=== PATIENT | female | born 2000 | race Caucasian/White ===

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

== ENCOUNTER 2021-04-28 02:24 | Outpatient (CLI) | payer BC, SELFPAY ==
[2021-04-28 10:08] LABS: Abs Immature Grans 0.01 10^3/uL (0.0-0.06); Absolute Basophil Count 0.02 10^3/uL (0.0-0.2); Absolute Eosinophil Count 0.11 10^3/uL (0.0-0.7); Absolute Lymphocyte Count 1.53 10^3/uL (1.2-3.4); Absolute Monocyte Count 0.56 10^3/uL (0.1-0.8); Absolute Neutrophil Count 3.91 10^3/uL (1.2-6.7); Basophils % 0.3; Eosinophils % 1.8; HCT 40.2 % (36.0-46.0); HGB 13.3 g/dL (11.2-15.7); Immature Grans % 0.2; Lymphocytes % 24.9; MCH 30.5 pg (27.0-33.0); MCHC 33.1 % (32.0-36.0); MCV 92.2 fL (80-95); MPV 9.6 fL (8.0-11.0); Monocytes % 9.1; Neutrophils % 63.7; Nucleated RBC 0 %; Platelet Count 310 10^3/uL (130-400); RBC 4.36 10^6/uL (3.93-5.22); RDW 11.9 % (11.7-14.6); RDW-SD 40.5 fL; WBC 6.14 10^3/uL (4.4-10.8)
[2021-04-28 10:57] LABS: ALT 17 U/L (14-59); AST 16 U/L (15-37); Albumin 4.5 g/dL (3.4-5.0); Alkaline Phosphatase 43 U/L (46-116); Anion Gap 8.3 mmol/L (3-11); BUN 13 mg/dL (7-18); Bilirubin, Total 0.4 mg/dL (0.2-1.0); CO2 26.7 mmol/L (21.0-32.0); CREATININE 0.7 mg/dL (0.55-1.02); Calcium 9.5 mg/dL (8.5-10.1); Chloride 104 mmol/L (98-107); Glucose 94 mg/dL (74-106); Potassium 3.9 mmol/L (3.5-5.1); Sodium 139 mmol/L (136-145); Total Protein 7.9 g/dL (6.4-8.2)
== END 2021-04-28 02:25 | disposition home or self-care (01) ==
LOC: LBO 02:25
PROVIDERS: PCP Nurse Practitioner Family; Visit Provider Nurse Practitioner Family
DX: G89.29 Other chronic pain (principal); R10.11 Right upper quadrant pain
CPT/HCPCS: 36415; 80053; 85025

== ENCOUNTER 2021-10-06 17:59 | Outpatient (REF) | payer BC, SELFPAY | END 2021-10-06 18:00 | disposition home or self-care (01) | LOC: LBN 17:59 | PROVIDERS: PCP Nurse Practitioner Family; Visit Provider Nurse Practitioner Family ==

== ENCOUNTER 2021-10-06 18:02 | Outpatient (REF) | payer BC, SELFPAY | END 2021-10-06 18:03 | disposition home or self-care (01) | LOC: LBN 18:02 | PROVIDERS: PCP Nurse Practitioner Family; Visit Provider Nurse Practitioner Family ==

== ENCOUNTER 2021-10-06 18:03 | Outpatient (REF) | payer BC, SELFPAY | END 2021-10-06 18:04 | disposition home or self-care (01) | LOC: LBN 18:03 | PROVIDERS: PCP Nurse Practitioner Family; Visit Provider Nurse Practitioner Family ==

== ENCOUNTER 2021-10-06 18:04 | Outpatient (REF) | payer BC, SELFPAY ==
[2021-10-06 21:15] LABS: ESR 2 mm/hr (0-20)
[2021-10-06 21:16] LABS: Abs Immature Grans 0.02 10^3/uL (0.0-0.06); Absolute Basophil Count 0.04 10^3/uL (0.0-0.2); Absolute Eosinophil Count 0.04 10^3/uL (0.0-0.7); Absolute Monocyte Count 0.41 10^3/uL (0.1-0.8); Absolute Neutrophil Count 5.05 10^3/uL (1.2-6.7); Basophils % 0.5; Eosinophils % 0.5; HCT 38.3 % (36.0-46.0); HGB 13.3 g/dL (11.2-15.7); Immature Grans % 0.3; Lymphocytes % 26.5; MCH 31.8 pg (27.0-33.0); MCHC 34.7 % (32.0-36.0); MCV 92 fL (80-95); MPV 10.1 fL (8.0-11.0); Monocytes % 5.4; Neutrophils % 66.8; Platelet Count 333 10^3/uL (130-400); RBC 4.18 10^6/uL (3.93-5.22); RDW-SD 40.3 fL; WBC 7.56 10^3/uL (4.4-10.8)
[2021-10-06 21:17] LABS: ALT 22 U/L (14-59); AST 14 U/L (15-37); Albumin 4.7 g/dL (3.4-5.0); Alkaline Phosphatase 34 U/L (46-116); Anion Gap 5.3 mmol/L (3-11); BUN 13 mg/dL (7-18); Bilirubin, Total 0.8 mg/dL (0.2-1.0); CO2 26.7 mmol/L (21.0-32.0); CREATININE 0.8 mg/dL (0.55-1.02); Calcium 9.6 mg/dL (8.5-10.1); Chloride 103 mmol/L (98-107); Glucose 84 mg/dL (74-106); Potassium 3.8 mmol/L (3.5-5.1); Sodium 135 mmol/L (136-145); Total Protein 7.7 g/dL (6.4-8.2)
[2021-10-07 19:38] LABS: CRP, High Sensitivity <0.34 mg/L (See Note)
[2021-10-08 10:56] LABS: Lyme Ab w Rflx to Lyme Confirm Negative (Negative)
[2021-10-15 15:26] LABS: Anaplasma phagocytophilum Negative (Negative); B. miyamotoi PCR Negative (Negative); Babesia divergens/MO-1 Negative (Negative); Babesia duncani Negative (Negative); Babesia microti Negative (Negative); Ehrlichia chaffeensis Negative (Negative); Ehrlichia ewingii/canis Negative (Negative); Ehrlichia muris eauclairensis Negative (Negative)
== END 2021-10-06 18:05 | disposition home or self-care (01) ==
LOC: LBN 18:04
PROVIDERS: PCP Nurse Practitioner Family; Visit Provider Nurse Practitioner Family
DX: M25.50 Pain in unspecified joint (principal)
CPT/HCPCS: 80053; 85652; 86141; 87798; 85025; 86618

== ENCOUNTER 2021-10-06 18:05 | Outpatient (REF) | payer BC, SELFPAY | END 2021-10-06 18:06 | disposition home or self-care (01) | LOC: LBN 18:05 | PROVIDERS: PCP Nurse Practitioner Family; Visit Provider Nurse Practitioner Family ==

== ENCOUNTER 2021-11-09 15:13 | Outpatient (REF) | payer BC, SELFPAY ==
[2021-11-10 15:11] LABS: Chlamydia Result Negative (Negative); GC Result Negative (Negative)
== END 2021-11-09 15:14 | disposition home or self-care (01) ==
LOC: LBN 15:13
PROVIDERS: PCP Nurse Practitioner Family; Visit Provider Nurse Practitioner Women's Health
DX: Z11.3 Encounter for screening for infections with a predominantly sexual mode of transmission (principal)
CPT/HCPCS: 87491; 87591

== ENCOUNTER 2021-12-06 02:19 | Emergency (ER) | payer BC, SELFPAY ==
[2021-12-06 02:23] VITALS: BP 128/88; PULSE 91; RESP 18; TEMP 36.6; O2SAT 100
--- NOTE | 2021-12-06 02:30 | DI.CT_ITS ---
Exam(s) CT RENAL COLIC WO EXAM: CT RENAL COLIC WO CLINICAL HISTORY: right flank pain. TECHNIQUE: Imaging Protocol: Axial computed tomography images with coronal and sagittal reformatted images were created and reviewed. CONTRAST MATERIAL: Noncontrast COMPARISON: CT CT ABDOMEN PELVIS W from 03/18/2020 FINDINGS: ABDOMEN: Lung Bases: Normal where visualized. Liver: Normal attenuation. No measurable mass. Gallbladder and biliary tract: No radiodense calculus or dilation. Pancreas: Normal density, no calcifications or inflammatory process. Spleen: Normal. Kidneys: Normal size, contour and axis. No radiodense stones or obstructive uropathy. No masses seen. Adrenal glands: No masses seen. Abdominal Aorta: Abdominal portion non-dilated. PELVIS: Bladder: Symmetric distention, no gross wall thickening. No evidence of stones.No visible mass. Bowel: No obstruction or bowel wall thickening. Large quantity of stool, particularly on the right si de of the colon.. Reproductive: IUD appropriately positioned within the uterus. No ovarian cyst visible. Peritoneal cavity: No ascites, collection or mesenteric inflammatory response. Bones: Unremarkable for age.. IMPRESSION: Unremarkable CT scan of the abdomen and pelvis. RADIATION DOSE DELIVERED: 716.21mGy.cm Total DLP DATA REPOSITORY: All CT scans at this facility are submitted to the National Radiology Data Registry (NRDR) Dose Index Registry (DIR) with the [employer] (ACR). RADIATION OPTIMIZATION: All CT scans at this facility use at least one of these dose optimization te chniques: automated exposure control; mA and/or kV adjustment per patient size (includes targeted exa ms where dose is matched to clinical indication); or iterative reconstruction.
--- NOTE | 2021-12-06 02:31 | W.ED.GENAD ---
Discharge Plan Disposition Patient Disposition: HOME Condition: Stable Discharge Details Clinical Impression: Abdominal pain, UTI (urinary tract infection) Primary Care Provider: Kavita Gomez ED Provider: Trey Hooper Home Meds and New Rx's Prescriptions: New ciprofloxacin HCl 500 mg tablet 500 mg PO BID Qty: 14 0RF ondansetron 4 mg tablet,disintegrating 4 mg PO Q8H PRN (Reason: nausea and vomiting) Qty: 30 0RF Continued Mirena 20 mcg/24 hours (5 yrs) 52 mg intrauterine device 1 device IY ONCE Discharge Instructions Instructions: Urinary Tract Infection in Women (ED), Abdominal Pain (ED) Additional Instructions: Your cat scan did not show concerning findings at this time if symptoms continue follow up with your primary care provider within 1 week if you feel more ill, have severe worsening pain or persistent vomiting return to the emergency department Medical Decision Making 21 yo female who denies chronic medical problems comes in with right lower abdomen and flank pain. She states she had some intermittent brief pain throughout the day yesterday but wasn't severe, went to bed then woke up about an hour ago with severe pain. She has also had n/v. She denies fevers, chills, vaginal bleeding or d/c. She arrives appearing in pain holding her right oblique. She is intermittently vomiting during exam. She has tenderness in the right lower abdomen and oblique area, no distention. Given rapid onset of symptoms suspect kidney stone less likely appendicitis, will obtain ua, cbc, cmp and renal colic ct pt's labs unremarkable and ct shows no acute findings. UA does have some red cells and wbc's in her urine. She is resting comfortable now and has no pain and no tenderness on exam. Unclear etiology of her pain, could have had a small stone that passed. Given improved symptoms and reassuring exam feel she is stable for d/c. Advised to f/u with pcp if symptoms continue and return precautions given. Will start her on cipro for her ua and does state she has had some dysuria Differential Diagnosis Differential Diagnosis: kidney stone, appendicitis Imaging Data Radiologic Study: Attestation: I personally reviewed and interpreted this imaging study as follows: Imaging: CT Scan Radiologist's impression: IMPRESSION: 1. Trace, nonspecific pelvic ascites. 2. IUD. Lab Data Lab results reviewed: Yes I reviewed the patient's lab results. HPI General Mode of arrival: ambulatory. Date/Time Provider Initiated Documentation: 12/06/21 02:20. Limitations to Documentation: no limitations. Information obtained by: patient. History of Present Illness 21 year old F presents to the emergency department with the chief complaint of right lower abdomen and flank pain, described as severe, with intensity rated at 10. Quality is described as sharp, Patient reports no radiation. Patient started experiencing this hour(s) (1) and it has been constant. No relieving factors improve symptom(s), No exacerbating factors reported . Patient notes nausea/vomiting. Patient did receive the following treatments prior to arrival, none Related Data Home Medications Medication Instructions Recorded Confirmed levonorgestrel 20 mcg/24 hours (7 1 device intrauterine ONCE 10/10/18 12/06/21 yrs) 52 mg intrauterine device (Mirena) ciprofloxacin HCl 500 mg tablet 500 mg PO BID #14 tabs 12/06/21 ondansetron 4 mg disintegrating 4 mg PO Q8H PRN nausea and 12/06/21 tablet vomiting #30 tabs Previous Rx's Medication Instructions Recorded ciprofloxacin HCl 500 mg tablet 500 mg PO BID #14 tabs 12/06/21 ondansetron 4 mg disintegrating 4 mg PO Q8H PRN nausea and 12/06/21 tablet vomiting #30 tabs Allergies Allergy/AdvReac Type Severity Reaction Status Date / Time grape Allergy Unknown Hives Verified 12/06/21 02:31 gluten AdvReac rash, Uncoded 12/06/21 02:31 diarrhea, upset stomach General Stated Complaint: Abd Prob ADIN: 2 Review of Systems All systems reviewed & are unremarkable except as noted in HPI and below Constitutional Constitutional: Denies chills, Denies fever(s) and Denies weakness Eyes Eyes: Denies loss of vision Cardiovascular Cardiovascular: Denies chest pain and Denies dyspnea Respiratory Respiratory: Denies cough and Denies dyspnea Musculoskeletal Musculoskeletal: Denies joint swelling Integumentary/Breasts Skin/Breast: Denies rash Neurologic Neurologic: Denies loss of vision and Denies weakness PFSH All Active Problems (Updated 12/06/21 @ 04:26 by Trey Hooper MD) Abdominal pain (Acute) UTI (urinary tract infection) (Acute) Hip pain, right (Acute) Abdominal pain, chronic, right upper quadrant (Acute) Major depressive disorder (Chronic) Generalized anxiety disorder (Chronic) Anorexia nervosa (Chronic) Migraine headache without aura (Chronic) 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 Rx with Azithromycin. FLYNN neg. Subsequent u/s residual L hydrosalpinx. Hydrosalpinx 03/19/20. bilateral noted on u/s at time of Dx of + Chlamydia. Left ovarian cyst 03/2020. Hemorrhagic cyst noted at u/s for eval of bilateral hydrosalpinx. 06/16/20 decreased in size Surgical History H/O colonoscopy (01/10/18) dr onofre - grossly normal with no pathological changes with random biopsies. History of esophagogastroduodenoscopy (EGD) (01/10/18) Dr Onofre - chronic inflammation consistent with history of vomiting, nonspecific changes in duodenal biopsies. S/P ovarian cystectomy (~2019) Right Family History Mother Alcohol abuse Father Migraine Depression Brother Migraine Depression Maternal Grandfather Prostate cancer Lung cancer Diabetes Heart disease Hyperlipidemia Paternal Grandfather , age 80 Alcohol abuse Prostate cancer Cancer all different types Depression Heart disease Maternal Grandmother , age 65 Breast cancer Ovarian cancer Paternal Grandmother Hyperlipidemia Depression Breast cancer Lymphoma Social History Smoking/Tobacco Use Status: Never Smoking risk assessment performed?: Yes Alcohol Intake: never Drug use: Never Substance use type: does not use Household members: friend(s) and other Details: lives with roomate in [place]-currently remote learning [employer]. Housing: apartment Number of Children: 0 Education Level: college Details: sophomore at college in [place]. During Covid taking virtual classes [employer] current occupation: [employer] in [place]. Interested in anthropology Pets and animals: Yes Pets and animals: cat(s), dog(s) and turtle(s) Sexually active: Yes Do you think of yourself as: straight/heterosexual Current gender identity: female What type of physical activity do you participate in: swimming, weight lifting, other and running Duration: 60-90 minutes/day Frequency: 5-6 times per week Seatbelt use: always Helmet use: Yes Do you feel safe at home: Yes Do you feel safe in your relationship?: Yes Additional Social history: 03/19/20. BF [place] [employer]. Female Reproductive History Menstrual Age of Menarche: 15 Duration of menses: <3 days control method: progestin IUCD (Mirena IUD inserted 10/10/18) History History 0 Para Hx # Term Pregnancies Multiple births Hx # Pregnancies Ectopic pregnancies AB induced Hx Number of Living Children AB spontaneous Exam Const Orientation: alert HENMT Head: normal to inspection Ears: external ears normal General nose exam: external nose normal Mouth: moist mucous membranes Eyes General: appearance normal, both eyes and all related structures Neck Neck: normal visual inspection Resp Effort & Inspection: normal respiratory effort and able to speak in complete sentences Cardio Rate: regular rate GI Palpation: soft and tender Skin General skin exam: no rashes or lesions noted Neuro General: patient alert and patient oriented x3 Extrem General: normal to inspection Psych Mental Status: mental status grossly normal Course Vital Signs Vital signs: Vital Signs Temperature 36.6 C 12/06/21 02:23 Pulse 91 H 12/06/21 02:23 Respiratory Rate 18 12/06/21 02:23 Blood Pressure 128/88 12/06/21 02:23 Pulse Oximetry 100 12/06/21 02:23 Temperature 36.6 C 12/06/21 02:23 Temperature Source Temporal Artery Scan 12/06/21 02:23 Pulse 91 H 12/06/21 02:23 Respiratory Rate 18 12/06/21 02:23 Respiratory Effort Non-Labored 12/06/21 02:27 Blood Pressure 128/88 12/06/21 02:23 Blood Pressure Position Supine 12/06/21 02:23 Pulse Oximetry 100 12/06/21 02:23 Oxygen Delivery Method Room Air 12/06/21 02:23 Oxygen Flow Rate 0 12/06/21 02:23 Pain Level 10 12/06/21 02:23
[2021-12-06 02:36] LABS: Abs Immature Grans 0.03 10^3/uL (0.0-0.06); HCT 38.9 % (36.0-46.0); HGB 13.3 g/dL (11.2-15.7); MCH 31.7 pg (27.0-33.0); MCHC 34.2 % (32.0-36.0); MCV 93 fL (80-95); MPV 9.6 fL (8.0-11.0); Platelet Count 354 10^3/uL (130-400); RDW 11.9 % (11.7-14.6); RDW-SD 40.4 fL; WBC 10.18 10^3/uL (4.4-10.8)
[2021-12-06] MEDS: Ketorolac 15 MG/ML VIAL IVP (02:37)
[2021-12-06] MEDS: Normal Saline 1,000 ML 1000 ML IV (02:38)
[2021-12-06] MEDS: Prochlorperazine 10 MG/2 ML VIAL IVP (02:38)
[2021-12-06] MEDS: MORPHine 4 MG/ML SYR (02:42)
[2021-12-06 02:52] LABS: ALT 20 U/L (14-59); AST 10 U/L (15-37); Alkaline Phosphatase 41 U/L (46-116); Anion Gap 9.9 mmol/L (3-11); BUN 10 mg/dL (7-18); Bilirubin, Total 0.3 mg/dL (0.2-1.0); CO2 25.1 mmol/L (21.0-32.0); CREATININE 0.8 mg/dL (0.55-1.02); Calcium 9.4 mg/dL (8.5-10.1); Chloride 106 mmol/L (98-107); Estimated GFR 108.11 (mL/min/1.73m2); Glucose 101 mg/dL (74-106); Lipase 81 U/L (73-393); Potassium 3.7 mmol/L (3.5-5.1); Sodium 141 mmol/L (136-145); Total Protein 7.5 g/dL (6.4-8.2)
[2021-12-06 03:03] LABS: Absolute Eosinophil Count 0.31 10^3/uL (0.0-0.7); Absolute Lymphocyte Count 4.99 10^3/uL (1.2-3.4); Absolute Monocyte Count 0.81 10^3/uL (0.1-0.8); Absolute Neutrophil Count 4.07 10^3/uL (1.2-6.7); Atypical Lymphocytes % 3
[2021-12-06 03:04] LABS: Diff Comment Manual Differential; RBC Morphology Normal
--- NOTE | 2021-12-06 03:39 | DI.VRAD_ITS ---
PROCEDURE INFORMATION: Exam: CT Abdomen And Pelvis Without Contrast Exam date and time: 12/06/2021 3:01 AM Age: 21 years old Clinical indication: Prior surgery; Surgery date: 6+ months; Surgery type: Surgery on ovarian cyst; Patient HX: R flank pain since 1 am TECHNIQUE: Imaging protocol: Computed tomography of the abdomen and pelvis without contrast. Radiation optimization: All CT scans at this facility use at least one of these dose optimization techniques: automated exposure control; mA and/or kV adjustment per patient size (includes targeted exams where dose is matched to clinical indication); or iterative reconstruction. COMPARISON: CT ABDOMEN PELVIS W 03/18/2020 2:38 PM FINDINGS: Liver: Normal. No mass. Gallbladder and bile ducts: Normal. No calcified stones. No ductal dilation. Pancreas: Normal. No ductal dilation. Spleen: Normal. No splenomegaly. Adrenal glands: Normal. No mass. Kidneys and ureters: No radiopaque renal or ureteric calculi. No hydronephrosis or perinephric fat stranding. Stomach and bowel: Unremarkable. No obstruction. No mucosal thickening. Appendix: No evidence of appendicitis. Intraperitoneal space: No free intraperitoneal gas. Trace pelvic ascites. Vasculature: Unremarkable. No abdominal aortic aneurysm. Lymph nodes: Unremarkable. No enlarged lymph nodes. Urinary bladder: Unremarkable as visualized. Reproductive: IUD appears satisfactorily positioned in anteverted uterus. Bones/joints: Unremarkable. No acute fracture. Soft tissues: Unremarkable. IMPRESSION: 1. Trace, nonspecific pelvic ascites. 2. IUD. Dictated and Authenticated by: Alexander Wu MD. Ordering:KIMBERLY Ynag MD
[2021-12-06 04:04] LABS: Bilirubin Negative (Negative); Blood Moderate (Negative); Clarity Cloudy (Clear); Glucose Negative (Negative); Ketones Negative (Negative); Leukocyte Esterase Trace (Negative); Nitrite Negative (Negative); Specific Gravity 1.025 (1.005-1.025); Urobilinogen 0.2 EU/dL (Up TO 0.2)
[2021-12-06 04:11] LABS: Bacteria Few HPF (Negative); C & S Indicated? No/Sq. Contamination; Casts Negative LPF (Negative); Crystals Negative HPF (Negative); Epithelial Cells Many HPF (Negative); Mucus Trace (Negative); RBC 20-50 HPF (0-2)
[2021-12-06] MEDS: Ciprofloxacin 500 MG TAB PO (04:31)
== END 2021-12-06 04:36 | disposition home or self-care (01) ==
PROVIDERS: Emergency Provider Emergency Medicine; PCP Nurse Practitioner Family
DX: N39.0 Urinary tract infection, site not specified (principal)
CPT/HCPCS: 80053; 81025; 83690; 96361; 96374; 96375; 99284; 74176; 81003; 81015; 83735; 85025; J0780; J1885; J2270

== ENCOUNTER 2022-07-06 15:13 | Outpatient (REF) | payer BC, SELFPAY ==
[2022-07-08 15:01] LABS: Chlamydia Result Negative (Negative); GC Result Negative (Negative)
== END 2022-07-06 15:14 | disposition home or self-care (01) ==
LOC: LBN 15:13
PROVIDERS: PCP Nurse Practitioner Family; Visit Provider Advanced Practice Midwife
DX: Z11.3 Encounter for screening for infections with a predominantly sexual mode of transmission (principal)
CPT/HCPCS: 87491; 87591

== ENCOUNTER 2022-07-07 02:11 | Outpatient (CLI) | payer BC, SELFPAY ==
[2022-07-08 09:19] LABS: Hepatitis B Surface Ag Negative (Negative)
[2022-07-08 09:55] LABS: Hepatitis C Ab w Rflx HCV PCR Negative (Negative)
[2022-07-08 10:09] LABS: HIV-1/2 Ag & Ab Screen Negative (Negative)
[2022-07-10 12:31] LABS: Syphilis IgG w/Reflex Nonreactive (Nonreactive)
== END 2022-07-07 02:12 | disposition home or self-care (01) ==
LOC: LBO 02:11
PROVIDERS: PCP Nurse Practitioner Family; Visit Provider Advanced Practice Midwife
DX: Z11.3 Encounter for screening for infections with a predominantly sexual mode of transmission (principal); Z34.91 Encounter for supervision of normal pregnancy, unspecified, first trimester; Z3A.00 Weeks of gestation of pregnancy not specified
CPT/HCPCS: 36415; 86803; 87340; 87389; 86780

== ENCOUNTER 2022-08-03 14:00 | Outpatient (CLI) | payer BC, SELFPAY ==
--- NOTE | 2022-08-03 11:45 | DI.RAD_ITS ---
Exam(s) XR WRIST LT COMPLETE EXAM: XR WRIST LT COMPLETE CLINICAL HISTORY: left wrist pain ? dislocation. TECHNIQUE: 2D digital imaging was performed. COMPARISON: CR XR FINGER LT LITTLE from 08/03/2022 FINDINGS: 3 views No evidence of fracture nor carpal dislocation. No significant ulnar variance. Scaphoid and scaphol unate distance appear unremarkable. Bone density normal. No osseous lesions. No radiopaque foreign body. IMPRESSION: No significant radiographic findings in the wrist. DATA REPOSITORY: RADIATION DOSE DELIVERED:
--- NOTE | 2022-08-03 11:45 | DI.RAD_ITS ---
Exam(s) XR FINGER LT LITTLE EXAM: XR FINGER LT LITTLE CLINICAL HISTORY: left 5th finger pain, lt wrist pain, M25.539. TECHNIQUE: 2D digital imaging was performed. COMPARISON: No exams were available for comparison FINDINGS: 3 views No evidence of fracture or dislocation or abnormal soft tissue calcifications. No radiopaque foreign body. Bone density normal. No osseous lesions. No degenerative changes. No erosions. Additional views of the 5th finger reveal no obvious abnormality. IMPRESSION: No significant radiographic findings. DATA REPOSITORY: RADIATION DOSE DELIVERED:
== END 2022-08-03 14:20 ==
LOC: DI 14:01
PROVIDERS: PCP Nurse Practitioner Family; Visit Provider Physician Assistant
DX: M25.532 Pain in left wrist (principal)
CPT/HCPCS: 73110; 73140

== ENCOUNTER 2022-10-26 14:45 | Outpatient (REF) | payer BC, SELFPAY ==
--- NOTE | 2022-10-26 13:50 | PAPFT_PTH ---
PATIENT: Mannie King LOC: N U#:[id number] AGE/SX: 22/F ROOM: RE10/26/[address]: Ann Hooper NP : 2000 BED: DIS: 10/26/2022 SPEC #: [id number] RECD: 10/27/22 18:29 STATUS: ELISHA WORLEY #: [id number] OZIEL: 10/26/22 13:[address]: Ann Hooper NP [facility] RECD BY: Griselda Jefferson ENTERED: 10/27/22 18:30 SP TYPE: PAPFT OTHR DR: TOI Villela Tissues: 1 - CX/ENDOCX FOR PAP SMEARS Procedures: PAP THIN PREP/[facility] Screening Comments: [id number]
== END 2022-10-26 14:46 | disposition home or self-care (01) ==
LOC: LBN 14:45
PROVIDERS: PCP Nurse Practitioner Family; Visit Provider Nurse Practitioner Women's Health
DX: Z12.4 Encounter for screening for malignant neoplasm of cervix (principal)
CPT/HCPCS: 88142

== ENCOUNTER 2024-03-25 13:52 | Outpatient (REF) | payer BC, SELFPAY ==
[2024-03-26 13:33] LABS: Chlamydia Result Negative (Negative); GC Result Negative (Negative)
== END 2024-03-25 13:53 | disposition home or self-care (01) ==
LOC: LBN 13:52
PROVIDERS: PCP Nurse Practitioner Family; Visit Provider Nurse Practitioner Women's Health
DX: Z11.3 Encounter for screening for infections with a predominantly sexual mode of transmission (principal); N91.5 Oligomenorrhea, unspecified; R63.5 Abnormal weight gain; Z87.42 Personal history of other diseases of the female genital tract
CPT/HCPCS: 87491; 87591

== ENCOUNTER 2024-03-27 03:20 | Outpatient (CLI) | payer BC, SELFPAY ==
[2024-03-27 14:41] LABS: TSH (W/Ref FT4) 1.64 uIU/mL (0.36-3.74)
[2024-03-28 09:44] LABS: Hepatitis C Ab w Rflx HCV PCR Negative (Negative)
[2024-03-28 09:56] LABS: HIV-1/2 Ag & Ab Screen Negative (Negative)
[2024-03-29 16:40] LABS: Syphilis IgG w/Reflex Nonreactive (Nonreactive)
[2024-04-03 16:26] LABS: Testosterone, Free 1.37 ng/dL (<0.13-1.08); Testosterone, Total 42 ng/dL (8-60)
== END 2024-03-27 03:21 | disposition home or self-care (01) ==
LOC: LBO 03:26
PROVIDERS: PCP Nurse Practitioner Family; Visit Provider Nurse Practitioner Women's Health
DX: Z11.3 Encounter for screening for infections with a predominantly sexual mode of transmission (principal); N91.5 Oligomenorrhea, unspecified; R63.5 Abnormal weight gain
CPT/HCPCS: 36415; 84402; 84403; 86803; 87389; 84443; 86780

== ENCOUNTER 2024-04-03 14:06 | Outpatient (CLI) | payer BC, SELFPAY ==
--- NOTE | 2024-04-03 12:45 | DI.RAD_ITS ---
Exam(s) XR KNEE RT 3V AP,LAT,KENDY EXAM: XR KNEE RT 3V AP,LAT,KENDY CLINICAL HISTORY: W19.XXXA Unspecified fall. TECHNIQUE: 2D digital imaging was performed. Three views. COMPARISON: No exams were available for comparison FINDINGS: BONES: No acute fracture is present. No bony destructive lesion is seen. JOINTS: The knee is normally aligned. No joint effusion is seen. The joint spaces are maintained. SOFT TISSUE: Normal. IMPRESSION: Unremarkable radiographs of the right knee. DATA REPOSITORY: RADIATION DOSE DELIVERED:
--- NOTE | 2024-04-03 12:45 | DI.RAD_ITS ---
Exam(s) XR HIP RT COMPLETE AP PELVIS EXAM: XR HIP RT COMPLETE AP PELVIS CLINICAL HISTORY: W19.XXXA Unspecified fall. TECHNIQUE: 2D digital imaging was performed. Three views COMPARISON: US US PELVIS TRANSVAGINAL from 09/02/2018 FINDINGS: BONES: No acute fracture is present. No bony destructive lesion is seen. JOINTS: No dislocation present. The hip joint spaces are maintained. SI joints and pubic symphysis are unremarkable. SOFT TISSUE: Normal. IUD in place. IMPRESSION: No acute abnormality. DATA REPOSITORY: RADIATION DOSE DELIVERED:
== END 2024-04-03 14:26 ==
LOC: DI 14:13
PROVIDERS: PCP Nurse Practitioner Family; Visit Provider Nurse Practitioner Family
DX: W19.XXXA Unspecified fall, initial encounter (principal); M25.551 Pain in right hip; M25.561 Pain in right knee
CPT/HCPCS: 73562; 73502

== ENCOUNTER 2024-07-17 21:34 | Outpatient (REF) | payer BC, SELFPAY ==
[2024-07-17 21:21] LABS: Abs Immature Grans 0.03 10^3/uL (0.0-0.06); Absolute Basophil Count 0.05 10^3/uL (0.0-0.2); Absolute Eosinophil Count 0.06 10^3/uL (0.0-0.7); Absolute Lymphocyte Count 2.15 10^3/uL (1.2-3.4); Absolute Monocyte Count 0.49 10^3/uL (0.1-0.8); Absolute Neutrophil Count 6.14 10^3/uL (1.2-6.7); Basophils % 0.6 %; Eosinophils % 0.7 %; HCT 41.1 % (36.0-46.0); Immature Grans % 0.3 %; Lymphocytes % 24.1 %; MCH 30.6 pg (27.0-33.0); MCHC 34.1 % (32.0-36.0); MCV 90 fL (80-95); MPV 10.1 fL (8.0-11.0); Monocytes % 5.5 %; Neutrophils % 68.8 %; Platelet Count 381 10^3/uL (130-400); RBC 4.57 10^6/uL (3.93-5.22); RDW 12.6 % (11.7-14.6); RDW-SD 41.3 fL; WBC 8.92 10^3/uL (4.4-10.8)
[2024-07-17 21:39] LABS: ALT 27 U/L (14-59); AST 20 U/L (15-37); Albumin 4.8 g/dL (3.4-5.0); Alkaline Phosphatase 46 U/L (46-116); Amylase 61 U/L (25-115); Anion Gap 11.6 mmol/L (3-11); BUN 8 mg/dL (7-18); Bilirubin, Total 0.6 mg/dL (0.2-1.0); CO2 27.4 mmol/L (21.0-32.0); CREATININE 0.9 mg/dL (0.55-1.02); Calcium 10.4 mg/dL (8.5-10.1); Chloride 103 mmol/L (98-107); Estimated GFR 92.12 (mL/min/1.73m2); Glucose 96 mg/dL (74-106); Lipase 71 U/L (<78); Potassium 4.6 mmol/L (3.5-5.1); Sodium 142 mmol/L (136-145); Total Protein 8.1 g/dL (6.4-8.2)
== END 2024-07-17 21:35 | disposition home or self-care (01) ==
LOC: LBN 21:34
PROVIDERS: PCP Nurse Practitioner Family; Visit Provider Nurse Practitioner Family
DX: R11.2 Nausea with vomiting, unspecified (principal)
CPT/HCPCS: 80053; 83690; 82150; 84443; 85025

== ENCOUNTER 2024-10-21 08:31 | Emergency (ER) | payer BC, SELFPAY ==
[2024-10-21 08:33] VITALS: BP 147/89; PULSE 72; RESP 16; TEMP 36.9; O2SAT 98
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
--- NOTE | 2024-10-21 08:45 | DI.CT_ITS ---
Exam(s) CT LUMBAR SPINE RECONS CT ABDOMEN PELVIS W EXAM: CT ABDOMEN PELVIS W CLINICAL HISTORY: RLQ tenderness; R CVA tenderness, R SI tenderness. TECHNIQUE: Imaging Protocol: Axial computed tomography images with coronal and sagittal reformatted images were created and reviewed Axial, coronal and sagittal images of the lumbar spine were reconstructed from the abdomen and pelvic CT. CONTRAST MATERIAL: Intravenous: Omnipaque 350 Contrast volume:75 ml Oral: no COMPARISON: CT CT LUMBAR SPINE RECONS from 10/21/2024 FINDINGS: ABDOMEN and PELVIS: Lung Bases: No acute findings. Liver: Normal density. No suspicious mass. Gallbladder and biliary tract: No radiodense calculus. No wall thickening or pericholecystic fluid. No biliary dilation. Pancreas: Normal density. No abnormal calcifications or inflammatory process. No evidence of mass. Spleen: Normal. Kidneys: Normal size, contour and axis. No radiodense stones. No obstructive uropathy. No suspicious masses seen. Adrenal glands: No masses seen. Vasculature: Abdominal aorta non-dilated. Soft tissues: Unremarkable. Bladder: No gross wall thickening. No calculi.No focal mass. Bowel: No obstruction. No bowel wall thickening. Appendix normal. Normal quantity of stool. Peritoneal cavity: No ascites. No focal collection. No mesenteric inflammatory response. No free air. Bones: Unremarkable for age. No evidence of fracture. SI joints are unremarkable. No lumbar spine fracture. Question mild scoliosis versus patient positioning. Reproductive organs: Unremarkable. IUD in place. Lymph nodes: No pathologically enlarged lymph nodes. IMPRESSION:: No acute abnormality in the abdomen or pelvis. RADIATION DOSE DELIVERED: Total DLP DATA REPOSITORY: All CT scans at this facility are submitted to the National Radiology Data Registry (NRDR) Dose Index Registry (DIR) with the [employer] (A[employer]). RADIATION OPTIMIZATION: All CT scans at this facility use at least one of these dose optimization techniques: automated exposure control; mA and/or kV adjustment per patient size (includes targeted exams where dose is matched to clinical indication); or iterative reconstruction.
[2024-10-21 09:00] LABS: Abs Immature Grans 0.12 10^3/uL (0.0-0.06); HCT 39.8 % (36.0-46.0); HGB 13.5 g/dL (11.2-15.7); Immature Grans % 0.9 %; MCH 31.4 pg (27.0-33.0); MCHC 33.9 % (32.0-36.0); MCV 93 fL (80-95); MPV 9.5 fL (8.0-11.0); Platelet Count 364 10^3/uL (130-400); RBC 4.30 10^6/uL (3.93-5.22); RDW 12.6 % (11.7-14.6); RDW-SD 42.6 fL; WBC 13.63 10^3/uL (4.4-10.8)
[2024-10-21] MEDS: Ketorolac 15 MG/ML VIAL IVP (09:15)
[2024-10-21] MEDS: ACETAMINOPHEN 1,000 MG/100 ML BAG 400 MG IVPB (09:15)
[2024-10-21] MEDS: Normal Saline 1,000 ML 1000 ML IV (09:15)
[2024-10-21 09:34] LABS: ALT 29 U/L (14-59); AST 10 U/L (15-37); Albumin 3.8 g/dL (3.4-5.0); Alkaline Phosphatase 34 U/L (46-116); Anion Gap 9.6 mmol/L (3-11); BUN 14 mg/dL (7-18); Bilirubin, Total 0.3 mg/dL (0.2-1.0); CO2 25.4 mmol/L (21.0-32.0); Calcium 9.0 mg/dL (8.5-10.1); Chloride 106 mmol/L (98-107); Estimated GFR 106.11 (mL/min/1.73m2); Glucose 90 mg/dL (74-106); Lipase 32 U/L (<78); Potassium 3.7 mmol/L (3.5-5.1); Sodium 141 mmol/L (136-145); Total Protein 7.2 g/dL (6.4-8.2)
[2024-10-21] MEDS: Normal Saline - Diluent 50 ML VIAL IJ (09:36)
[2024-10-21] MEDS: Omnipaque 350 MG/ML 500 ML BTL-Imaging package 75 ML IJ (09:38)
[2024-10-21 09:49] LABS: Glucose Negative (Negative)
[2024-10-21 09:56] VITALS: BP 106/60; PULSE 67; RESP 16; O2SAT 100
[2024-10-21] MEDS: Cyclobenzaprine 10 MG TAB PO (10:09)
[2024-10-21 10:32] VITALS: BP 107/52; PULSE 57; RESP 18; TEMP 36.5; O2SAT 99
[2024-10-21 17:36] LABS: Legionella Ag Detection Urine Negative (Negative)
[2024-10-22 13:59] LABS: Lyme Ab w Rflx to Lyme Confirm Negative (Negative)
[2024-10-23 14:25] LABS: B. miyamotoi PCR Negative (Negative); Babesia divergens/MO-1 Negative (Negative); Ehrlichia muris eauclairensis Negative (Negative)
== END 2024-10-21 10:39 | disposition home or self-care (01) ==
PROVIDERS: Emergency Provider Physician Assistant; PCP Nurse Practitioner Family
DX: M54.9 Dorsalgia, unspecified (principal); R10.9 Unspecified abdominal pain; R10.31 Right lower quadrant pain
CPT/HCPCS: 36415; 80053; 81025; 83690; 87449; 87798; 96361; 96374; 96375; 99285; 74177; 81003; 83605; 85025; 86618; 99284; J0131; J1885

== ENCOUNTER 2024-12-16 12:16 | Outpatient (REF) | payer BC, SELFPAY ==
[2024-12-16 18:56] LABS: Abs Immature Grans 0.03 10^3/uL (0.0-0.06); HCT 39.5 % (36.0-46.0); HGB 13.4 g/dL (11.2-15.7); Immature Grans % 0.4 %; MCH 31.3 pg (27.0-33.0); MCHC 33.9 % (32.0-36.0); MCV 92 fL (80-95); MPV 10.1 fL (8.0-11.0); Platelet Count 412 10^3/uL (130-400); RBC 4.28 10^6/uL (3.93-5.22); RDW 11.9 % (11.7-14.6); RDW-SD 40.4 fL; WBC 8.48 10^3/uL (4.4-10.8)
[2024-12-16 19:07] LABS: ALT 26 U/L (14-59); AST 13 U/L (15-37); Albumin 4.2 g/dL (3.4-5.0); Alkaline Phosphatase 45 U/L (46-116); Anion Gap 6.4 mmol/L (3-11); BUN 8 mg/dL (7-18); Bilirubin, Total 0.3 mg/dL (0.2-1.0); CO2 29.6 mmol/L (21.0-32.0); Calcium 9.5 mg/dL (8.5-10.1); Chloride 104 mmol/L (98-107); Estimated GFR 124.55 (mL/min/1.73m2); Glucose 94 mg/dL (74-106); Lipase 22 U/L (<78); Potassium 4.5 mmol/L (3.5-5.1); Sodium 140 mmol/L (136-145); Total Protein 7.0 g/dL (6.4-8.2)
== END 2024-12-16 12:17 | disposition home or self-care (01) ==
LOC: LBN 12:16
PROVIDERS: PCP Nurse Practitioner Family; Visit Provider Physician Assistant
DX: R10.11 Right upper quadrant pain (principal)
CPT/HCPCS: 80053; 83690; 85025

== ENCOUNTER 2024-12-18 08:50 | Outpatient (REF) | payer BC, SELFPAY ==
[2024-12-18 14:53] LABS: Glucose Negative (Negative)
== END 2024-12-18 08:51 | disposition home or self-care (01) ==
LOC: LBN 08:50
PROVIDERS: PCP Nurse Practitioner Family; Visit Provider Nurse Practitioner Family
DX: R10.11 Right upper quadrant pain (principal); G89.29 Other chronic pain
CPT/HCPCS: 81003

== ENCOUNTER 2025-02-28 08:22 | Outpatient (CLI) | payer BC, SELFPAY ==
[2025-02-28 10:10] LABS: Abs Immature Grans 0.03 10^3/uL (0.0-0.06); HCT 41.4 % (36.0-46.0); HGB 14.1 g/dL (11.2-15.7); Immature Grans % 0.4 %; MCH 30.8 pg (27.0-33.0); MCHC 34.1 % (32.0-36.0); MCV 90 fL (80-95); MPV 9.5 fL (8.0-11.0); Platelet Count 391 10^3/uL (130-400); RBC 4.58 10^6/uL (3.93-5.22); RDW 11.9 % (11.7-14.6); RDW-SD 39.0 fL; WBC 7.43 10^3/uL (4.4-10.8)
[2025-02-28 10:29] LABS: Hemoglobin A1C 5.0 % (<5.7)
[2025-02-28 10:55] LABS: Lipase 24 U/L (<53)
[2025-02-28 10:56] LABS: ALT 44 U/L (10-49); AST 27 U/L (<34); Albumin 5.0 g/dL (3.2-5.0); Alkaline Phosphatase 43 U/L (46-116); Anion Gap 12 mmol/L (3-11); BUN 8 mg/dL (9-23); Bilirubin, Total 0.9 mg/dL (0.2-1.2); CO2 24.0 mmol/L (20.0-31.0); Calcium 9.6 mg/dL (8.3-10.6); Chloride 106 mmol/L (98-107); Glucose 103 mg/dL (74-106); Potassium 3.9 mmol/L (3.5-5.1); Sodium 142 mmol/L (136-145); Total Protein 7.9 g/dL (5.7-8.2)
[2025-02-28 11:29] LABS: Amylase 56 U/L (30-118)
[2025-02-28 12:04] LABS: Glucose Negative (Negative)
[2025-02-28 12:13] LABS: C & S Indicated? No; RBC Negative HPF (0-2); WBC Negative HPF (0-5)
[2025-02-28 18:13] LABS: HIV-1/2 Ag & Ab Screen Negative (Negative)
[2025-02-28 18:16] LABS: Hep B Core Antibody Negative (Negative)
[2025-02-28 18:43] LABS: HBs Antibody, Quant <3.1 mIU/mL (See Note); Hepatitis B Surface Ab Negative (See Note)
[2025-02-28 19:28] LABS: Hepatitis A Antibody IgM Negative (Negative); Hepatitis C Ab w Rflx HCV PCR Negative (Negative)
[2025-03-02 10:22] LABS: Syphilis Serology (RPR) Negative (Negative)
== END 2025-02-28 08:23 | disposition home or self-care (01) ==
PROVIDERS: Obstetrics & Gynecology; PCP Nurse Practitioner Family; Visit Provider Nurse Practitioner Family
DX: R11.2 Nausea with vomiting, unspecified (principal); Z11.59 Encounter for screening for other viral diseases; Z11.3 Encounter for screening for infections with a predominantly sexual mode of transmission
CPT/HCPCS: 36415; 80053; 83690; 86704; 86706; 86709; 86803; 87340; 87389; 81003; 81015; 82150; 83036; 85025; 86592